=== PATIENT | female | born 1975 | race Caucasian/White ===

== ENCOUNTER 2017-01-11 07:52 | Emergency (ER) | payer OTHER ==
[~2017-01-11] VITALS: Ht 162.5 cm; Wt 68.0 kg
[~2017-01-11 07:52] MED LIST: AMOXICILLIN500 M2 PO; ANAPROX DS550 MG PO; ANTIVERT/2525 M1 PO; ATIVAN1 MG PO; AUGMENTIN 875 M1 TAB PO; AUGMENTIN 875875 MG PO; BACTRIM DS 8001 TA1 PO; CHROMAGEN FORTE1 TAB PO; CIPROFLOXACIN500 MG PO; CLARITIN10 MG PO; CLINDAMYCIN HC300 MG PO; DARVOCET A500 51 TAB PO; DAYPRO600 M1 PO; DIFLUCAN150 MG PO; EC NAPROSYN500 MG PO; EES400 MG PO; FERROUS SULFAT325 M1 PO; FLEXERIL10 MG PO; FLEXERIL5 MG PO; FLOMAX0.4 MG PO; Fioricet 325 MG1 TAB PO; IBU-8800 MG PO; IMITREX; INDERAL LA60 MG PO; IRON TABLETS325 MG PO; KEFLEX500 MG PO; MECLIZINE25 MG PO; MOTRIN800 MG PO; NAPROSYN250 MG PO; NAPROSYN500 MG PO; NORCO 325 MG-51 TAB PO; PENICILLIN VK500 MG PO; PERCOCET 325 MG1 TA2 PO; PERCOCET 325 MG1 TA5 PO; PHENERGAN25 M1 PO; PREVACID SOLUTA30 MG PO; PRISTIQ100 MG PO; PROVERA10 MG PO; Peridex 473 ML473 ML PO; ROBAXIN750 MG PO; SEPTRA DS 800 M1 TAB PO; SKELAXIN800 MG PO; SYMBICORT1 AE1 IH; TOPAMAX50 MG PO; TRAMADOL HCL50 MG PO; ULTRAM50 MG PO; VALIUM10 MG PO; VICODIN 5/500 505 MG PO; VICODIN 500 MG-1 TAB PO; VITAMIN D50000 I3 PO; WELLBUTRIN75 MG PO; ZOFRAN ODT4 MG SL; ZOFRAN4 MG PO; ZYRTEC10 MG PO; [UNRECOGNIZED DRUG - OTHER]; [UNRECOGNIZED DRUG - REMARK]
[2017-01-11 08:06] VITALS: BP 106/60
== END 2017-01-11 10:33 | disposition home or self-care (01) ==
LOC: ED 07:52
DX: R51 Headache (principal); G43.909 Migraine, unspecified, not intractable, without status migrainosus

== ENCOUNTER 2017-01-28 00:34 | Emergency (ER) | payer OTHER ==
[~2017-01-28] VITALS: Ht 162.5 cm; Wt 68.0 kg
[2017-01-28 00:35] VITALS: BP 111/65
[2017-01-28] MEDS ORDERED: AMOXICILLIN500 M2 PO (00:52)
[2017-01-28] MEDS ORDERED: ZYRTEC10 MG PO (00:52)
== END 2017-01-28 01:01 | disposition home or self-care (01) ==
LOC: ED 00:34
DX: J01.90 Acute sinusitis, unspecified (principal); Z87.891 Personal history of nicotine dependence; Z90.49 Acquired absence of other specified parts of digestive tract

== ENCOUNTER 2017-03-06 04:38 | Emergency (ER) | payer OTHER ==
[~2017-03-06] VITALS: Ht 162.5 cm; Wt 72.6 kg
[2017-03-06 04:45] VITALS: BP 118/79
== END 2017-03-06 06:25 | disposition home or self-care (01) ==
LOC: ED 04:38
DX: G43.909 Migraine, unspecified, not intractable, without status migrainosus (principal); Z87.891 Personal history of nicotine dependence; Z90.49 Acquired absence of other specified parts of digestive tract; Z87.442 Personal history of urinary calculi

== ENCOUNTER 2017-03-18 06:51 | Emergency (ER) | payer OTHER ==
[~2017-03-18] VITALS: Ht 162.5 cm; Wt 68.0 kg
[2017-03-18 06:57] VITALS: BP 108/72
== END 2017-03-18 08:51 | disposition home or self-care (01) ==
LOC: ED 06:51
DX: S90.121A Contusion of right lesser toe(s) without damage to nail, initial encounter (principal); S90.414A Abrasion, right lesser toe(s), initial encounter; Z87.891 Personal history of nicotine dependence; Z90.49 Acquired absence of other specified parts of digestive tract; G43.909 Migraine, unspecified, not intractable, without status migrainosus; Z87.442 Personal history of urinary calculi; W22.8XXA Striking against or struck by other objects, initial encounter; Y93.39 Activity, other involving climbing, rappelling and jumping off; Y92.9 Unspecified place or not applicable; Y99.9 Unspecified external cause status

== ENCOUNTER 2017-05-08 13:59 | Emergency (ER) | payer SELFPAY ==
[~2017-05-08] VITALS: Ht 165.1 cm; Wt 72.6 kg
[2017-05-08 14:31] VITALS: BP 126/72
== END 2017-05-08 15:32 | disposition home or self-care (01) ==
LOC: ED 13:59
DX: R51 Headache (principal); R03.0 Elevated blood-pressure reading, without diagnosis of hypertension; R11.0 Nausea; Z87.891 Personal history of nicotine dependence

== ENCOUNTER 2017-06-08 19:02 | Inpatient (IN) | payer OTHER ==
[~2017-06-08] VITALS: Ht 162.5 cm; Wt 76.8 kg
--- NOTE | ~2017-06-08 | PR ---
[place], [place] PROGRESS NOTE NAME: DELBERT VILLANUEVA [facility] #: [id number] UNIT #: [id number] ROOM: 526 DOCTOR: AYAD MENA MD BIRTHDATE: [birth year] DOS: 06/10/2017 CARDIOLOGY PROGRESS NOTE HISTORY OF PRESENT ILLNESS: The patient was seen at her bedside today with family in attendance. She is a 41-year-old woman who has had dyspnea with exertion and persistent chest discomfort for the last month. Symptoms got worse and prompted this admission. Since she has been in the hospital, serial cardiac biomarkers and EKGs have been normal. Her chest x-ray shows no infiltrates. A CT angiogram of the chest showed no evidence for pulmonary embolism or aortic dissection. Her echocardiogram shows normal wall motion and no evidence for pericarditis. Nonetheless, she continues to be dyspneic with modest exertion. PHYSICAL EXAMINATION: VITAL SIGNS: Her pulse is 78 and regular, blood pressure is 101/65. She is afebrile. She weighs 76.8 kilograms with a body mass index of 29.1. HEENT: Normocephalic, atraumatic. Extraocular muscles are intact. Sclerae are clear. Pupils are equal, round and reactive to light. The oral mucosa is moist. Tongue is midline. NECK: Supple. She has no jugular distention. Carotids are full. LUNGS: Respirations are unlabored at rest. She does have expiratory prolongation, but no wheezes or rales. HEART: Her heart has a regular rhythm with a soft S4 gallop, but no S3 or murmur. The PMI is not displaced. ABDOMEN: Soft and normally active without masses, organomegaly or bruits. EXTREMITIES: Showed no edema. Peripheral pulses are palpable in the feet. IMPRESSION: 1. Atypical, precordial chest discomfort. 2. Dyspnea on exertion. 3. Episodes of nausea, vomiting and diarrhea prior to admission, which have resolved. 4. History of migraine headaches. 5. Family history of coronary artery disease in her mother. 6. Remote tobacco abuse, abstinent for 3 years. PLAN: No other cardiac workup is planned as an inpatient. Unless other evaluation or management strategies are being planned by the primary team, she could be discharged to home from our standpoint and have a stress test early this coming week as an outpatient. I thank the hospitalist physicians for asking our advice regarding her assessment. [place], [place] PROGRESS NOTE NAME: DELBERT VILLANUEVA UNIT #: [id number] ROOM: 526 DOCTOR: AYAD MENA MD BIRTHDATE: [birth year] AYAD MENA MD CM:PNTRANS [id number] AYAD MENA MD 06/10/172216 interface
--- NOTE | ~2017-06-08 | CON ---
[place], [place] REPORT OF CONSULTATION [id number] UNIT #: [id number] ROOM: 526 DOCTOR: KATHY REYNOLDS MD BIRTHDATE: [birth year] DOS: 06/09/2017 REASON FOR CONSULTATION: Chest pain. HISTORY OF PRESENT ILLNESS: The patient is a 41-year-old patient with history of migraine headaches, kidney stones, and obesity, who presented to the Emergency Room with chest pain. She complained of midsternal chest pain for the past 1 month and it has been more or less constant pain. It is there most of the day. It sometimes gets better, sometimes get worse. There is no radiation of the pain. This pain is mild in severity and it is started about a month ago. It sometimes may get worse with exertion but usually it is there all the time and intermittently can get worse on its own. She describes this pain as sharp and heaviness in the midsternal area. She denied any associated symptoms with this pain. This pain again has no radiation. She also complained of some shortness of breath for the past one month. Again, her shortness of breath is there pretty much all day, even when she is at rest, sometimes gets worse with exertion, but no cough or hemoptysis. For the past several days, she noted to have some nausea, vomiting, and diarrhea and also yesterday and today she had some "low-grade fever." She denies any palpitations, dizziness. No syncope. No PND or orthopnea. No genitourinary symptoms. No musculoskeletal symptoms. No neurologic symptoms such as tingling, numbness or weakness, but she does have some chronic headaches. No blurred vision or double vision. REVIEW OF SYSTEMS: Review of the 10-system negative except as mentioned above. PAST MEDICAL HISTORY: 1. Migraine headaches. 2. Kidney stones. 3. History of cervical dysplasia. 4. History of hematuria. 5. Overweight. PAST SURGICAL HISTORY: History of cholecystectomy, history of uterine ablation, thyroidectomy. SOCIAL HISTORY: Does not drink alcohol, does not use any illicit drugs. She quit smoking in 2013. FAMILY HISTORY: Mother has coronary artery disease and she at the age of 54. The father has no known medical histories. ALLERGIES: No known drug allergies. HOME MEDICATIONS: Reviewed. PHYSICAL EXAMINATION: VITAL SIGNS: Blood pressure 104/40, pulse 77, respirations 18. BMI 29.1 with weight of 76.7 kilos. GENERAL: Alert, comfortable, in no acute distress. [place], [place] REPORT OF CONSULTATION NAME: DELBERT VILLANUEVA UNIT #: [id number] ROOM: 526 DOCTOR: KATHY REYNOLDS MD BIRTHDATE: [birth year] HEENT: Pupils are round and equal. No jaundice. Tongue was moist and pharynx was clear. NECK: Supple, no distended neck veins, no carotid bruit. CHEST: Symmetrical. There is minimal tenderness in the left and right pericardial area near the infraclavicular area. No palpable thrills. HEART: Regular rhythm, no S3, no S4. LUNGS: Clear to auscultation bilaterally. ABDOMEN: Nontender. Bowel sounds normal. No palpable masses, no pulsatile aorta. EXTREMITIES: Showed no edema. Distal pulses are palpable. SKIN: Warm and dry. No cyanosis, no clubbing. NEUROLOGIC: The patient is alert and oriented. No focal neurologic deficit. RECTAL: Deferred. GENITOURINARY: Deferred. MUSCULOSKELETAL: No joint tenderness or swelling. PSYCHIATRIC: The patient is alert, oriented with good mood and affect. DIAGNOSTIC TESTS AND IMAGING STUDIES: EKGs and labs reviewed. EKG showed normal sinus rhythm with T-wave inversion in V1, V2, nonspecific. IMPRESSION: 1. Chest pain, atypical. 2. Shortness of breath. 3. Nausea, vomiting, and diarrhea. 4. Migraine headaches. 5. Overweight. 6. Family history of coronary artery disease, in the mother. 7. History a remote tobacco use, quit in 2013. RECOMMENDATIONS: Her chest pain appears to be atypical. EKG and cardiac enzymes unremarkable. We need to rule out pulmonary emboli. Due to her chest pain and shortness of breath, she was scheduled for a CT angiogram of the chest this afternoon. Check 2D echo for LV function and also right ventricular function and valvular function. If her chest CT is negative and she continues to have recurrent chest pain, then I would recommend a stress test. This can be done on Monday due to the weekend. The above treatment plan discussed with the patient and all her questions answered. Thank you, Dr. Kaufman, for asking us to evaluate this patient and we will follow the case along with you. [place], [place] REPORT OF CONSULTATION NAME: DELBERT VILLANUEVA UNIT #: [id number] ROOM: 526 DOCTOR: KATHY REYNOLDS MD BIRTHDATE: [birth year] KATHY REYNOLDS MD CM:CONSTR:REPORT OF CONSULTATION 1254 06/10/17 0213 interface
[2017-06-08 19:14] VITALS: BP 110/72
[2017-06-08 19:37] LABS: BASO % 0.3 % (0.0-1.0); EOS # 0.1 10*3/uL (0.0-0.4); EOS % 1.2 % (1.0-4.0); HEMATOCRIT 34.1 % (37.0-47.0); HEMOGLOBIN 11.7 g/dl (12.0-16.0); LYMPH # 2.2 10*3/uL (1.3-4.4); LYMPH % 32.7 % (27.0-41.0); MEAN CELL VOLUME 85.3 fl (81.0-99.0); MEAN CORPUSCULAR HGB 29.3 pg (27.0-31.0); MEAN CORPUSCULAR HGB CONC 34.3 g/dl (33.0-37.0); MEAN PLATELET VOLUME 9.3 fl (9.6-12.3); MONO # 0.4 10*3/uL (0.1-1.0); MONO % 6.4 % (3.0-9.0); NEUT # 4.1 10*3/uL (2.3-7.9); NEUT % 59.1 % (47.0-73.0); PLATELET COUNT AUTOMATED 207 10*3/uL (130-400); RED CELL DISTRI WIDTH 12.7 % (0-14.5); WHITE BLOOD COUNT 6.9 10*3/uL (4.8-10.8)
[2017-06-08 19:47] LABS: INTERNATIONAL NORM RATIO 0.9 (2.0-3.5)
[2017-06-08 19:53] LABS: ALBUMIN 3.7 gm/dl (3.1-4.5); ALKALINE PHOSPHATASE 107 U/L (45-117); BILIRUBIN, TOTAL 0.5 mg/dl (0.2-1.0); BUN 11 mg/dl (7-24); CARBON DIOXIDE 25 mmol/L (21-32); CHLORIDE 108 mmol/L (98-107); EST GLOM FILT AFRICAN AMERICAN > 60 ml/min; GLUCOSE 88 mg/dL (65-99); MAGNESIUM 1.9 mg/dL (1.5-2.1); POTASSIUM 3.4 mmol/L (3.5-5.1); SGOT/AST 16 IU/L (3-35); SGPT/ALT 35 U/L (12-78); SODIUM 140 mmol/L (136-145); TOTAL PROTEIN 7.2 gm/dL (6.4-8.2)
[2017-06-08 19:54] LABS: TROPONIN I < 0.015 ng/ml (<0.045)
[2017-06-08 21:23] VITALS: BP 108/58
[2017-06-08 22:00] VITALS: BP 110/67
[2017-06-09] VITALS: BP 96/52
[2017-06-09 05:54] LABS: BASO % 0.8 % (0.0-1.0); EOS # 0.1 10*3/uL (0.0-0.4); HEMATOCRIT 34.5 % (37.0-47.0); HEMOGLOBIN 11.7 g/dl (12.0-16.0); LYMPH # 1.8 10*3/uL (1.3-4.4); LYMPH % 37.5 % (27.0-41.0); MEAN CELL VOLUME 86.7 fl (81.0-99.0); MEAN CORPUSCULAR HGB 29.4 pg (27.0-31.0); MEAN CORPUSCULAR HGB CONC 33.9 g/dl (33.0-37.0); MEAN PLATELET VOLUME 9.7 fl (9.6-12.3); MONO # 0.4 10*3/uL (0.1-1.0); MONO % 7.4 % (3.0-9.0); NEUT # 2.5 10*3/uL (2.3-7.9); NEUT % 52.1 % (47.0-73.0); PLATELET COUNT AUTOMATED 187 10*3/uL (130-400); RED BLOOD COUNT 3.98 10*6/uL (4.10-5.10); RED CELL DISTRI WIDTH 12.6 % (0-14.5); WHITE BLOOD COUNT 4.9 10*3/uL (4.8-10.8)
[2017-06-09 06:04] LABS: ALBUMIN 3.4 gm/dl (3.1-4.5); ALKALINE PHOSPHATASE 98 U/L (45-117); BILIRUBIN, TOTAL 0.9 mg/dl (0.2-1.0); BUN 12 mg/dl (7-24); CARBON DIOXIDE 22 mmol/L (21-32); CHLORIDE 110 mmol/L (98-107); EST GLOM FILT AFRICAN AMERICAN > 60 ml/min; GLUCOSE 88 mg/dL (65-99); POTASSIUM 3.8 mmol/L (3.5-5.1); SGOT/AST 19 IU/L (3-35); SGPT/ALT 29 U/L (12-78); SODIUM 138 mmol/L (136-145); TOTAL PROTEIN 6.8 gm/dL (6.4-8.2)
[2017-06-09 08:00] VITALS: BP 104/46
[2017-06-09 12:00] VITALS: BP 106/59
[2017-06-09 16:00] VITALS: BP 123/69
[2017-06-09 20:00] VITALS: BP 123/71
[2017-06-10] VITALS: BP 105/53
[2017-06-10 06:18] LABS: BASO % 0.8 % (0.0-1.0); EOS # 0.1 10*3/uL (0.0-0.4); EOS % 1.6 % (1.0-4.0); HEMATOCRIT 37.2 % (37.0-47.0); HEMOGLOBIN 12.4 g/dl (12.0-16.0); LYMPH # 1.9 10*3/uL (1.3-4.4); LYMPH % 37.9 % (27.0-41.0); MEAN CELL VOLUME 87.5 fl (81.0-99.0); MEAN CORPUSCULAR HGB 29.2 pg (27.0-31.0); MEAN CORPUSCULAR HGB CONC 33.3 g/dl (33.0-37.0); MEAN PLATELET VOLUME 9.4 fl (9.6-12.3); MONO # 0.3 10*3/uL (0.1-1.0); MONO % 6.3 % (3.0-9.0); NEUT # 2.7 10*3/uL (2.3-7.9); PLATELET COUNT AUTOMATED 193 10*3/uL (130-400); RED BLOOD COUNT 4.25 10*6/uL (4.10-5.10); RED CELL DISTRI WIDTH 12.7 % (0-14.5); WHITE BLOOD COUNT 5.1 10*3/uL (4.8-10.8)
[2017-06-10 06:42] LABS: BUN 10 mg/dl (7-24); CARBON DIOXIDE 24 mmol/L (21-32); CHLORIDE 110 mmol/L (98-107); EST GLOM FILT AFRICAN AMERICAN > 60 ml/min; GLUCOSE 87 mg/dL (65-99); POTASSIUM 3.9 mmol/L (3.5-5.1); SODIUM 141 mmol/L (136-145)
[2017-06-10 08:00] VITALS: BP 97/55
[2017-06-10 12:00] VITALS: BP 107/60
[2017-06-10 16:00] VITALS: BP 101/65
== END 2017-06-10 18:20 | disposition home or self-care (01) | DRG 392 ==
LOC: ED 19:02 → 5E 20:39 → EDHOLD 20:39 → 5E 20:42
PROVIDERS: Emergency Medicine; Family Medicine; Internal Medicine Nephrology
DX: K21.9 Gastro-esophageal reflux disease without esophagitis (principal); E87.8 Other disorders of electrolyte and fluid balance, not elsewhere classified; R00.1 Bradycardia, unspecified; D64.9 Anemia, unspecified; G43.909 Migraine, unspecified, not intractable, without status migrainosus; R06.00 Dyspnea, unspecified; R11.2 Nausea with vomiting, unspecified; E66.3 Overweight; Z90.49 Acquired absence of other specified parts of digestive tract; Z87.891 Personal history of nicotine dependence; Z82.49 Family history of ischemic heart disease and other diseases of the circulatory system; Q06.1 Hypoplasia and dysplasia of spinal cord; Z68.29 Body mass index [BMI] 29.0-29.9, adult; R07.89 Other chest pain

== ENCOUNTER 2017-07-26 19:17 | Emergency (ER) | payer OTHER ==
[~2017-07-26] VITALS: Ht 162.5 cm; Wt 72.6 kg
[2017-07-26 19:23] VITALS: BP 138/74
[2017-07-26] MEDS ORDERED: CLINDAMYCIN HC300 MG PO (20:20)
== END 2017-07-26 20:50 | disposition home or self-care (01) ==
LOC: ED 19:17
DX: K04.7 Periapical abscess without sinus (principal)

== ENCOUNTER 2017-10-18 12:18 | Emergency (ER) | payer OTHER ==
[~2017-10-18] VITALS: Ht 162.5 cm; Wt 77.1 kg
[2017-10-18 12:34] VITALS: BP 122/82
== END 2017-10-18 14:37 | disposition home or self-care (01) ==
LOC: ED 12:18
DX: G43.909 Migraine, unspecified, not intractable, without status migrainosus (principal)

== ENCOUNTER → 2018-05-29 | Outpatient (CLI) | payer OTHER | END | disposition home or self-care (01) | LOC: RAD 14:53 | DX: M47.816 Spondylosis without myelopathy or radiculopathy, lumbar region (principal) ==

== ENCOUNTER → 2018-09-07 | Outpatient (CLI) | payer OTHER | END | disposition home or self-care (01) | LOC: ORTHO 02:03 | DX: M25.562 Pain in left knee (principal) ==

== ENCOUNTER 2018-11-11 15:28 | Emergency (ER) | payer OTHER ==
[~2018-11-11] VITALS: Ht 162.5 cm; Wt 72.6 kg
[2018-11-11 15:29] VITALS: BP 121/76
[2018-11-11] MEDS ORDERED: NAPROSYN500 MG PO (15:40)
[2018-11-11] MEDS ORDERED: PREDNISONE50 MG PO (15:40)
== END 2018-11-11 15:51 | disposition home or self-care (01) ==
LOC: ED 15:28
DX: S29.012A Strain of muscle and tendon of back wall of thorax, initial encounter (principal); X58.XXXA Exposure to other specified factors, initial encounter; Y93.89 Activity, other specified; Y92.89 Other specified places as the place of occurrence of the external cause; Y99.8 Other external cause status

== ENCOUNTER → 2019-01-30 | Outpatient (CLI) | payer OTHER ==
[~2019-01-30] MED LIST changes: +PREDNISONE50 MG PO
== END | disposition home or self-care (01) ==
LOC: US 01-22 15:00
DX: N92.6 Irregular menstruation, unspecified (principal)

== ENCOUNTER 2019-08-31 19:10 | Emergency (ER) | payer OTHER ==
[~2019-08-31] VITALS: Ht 162.5 cm; Wt 74.8 kg
[2019-08-31 19:12] VITALS: BP 110/50
[2019-08-31 19:54] LABS: BILIRUBIN NEGATIVE (NEGATIVE); BLOOD NEGATIVE (NEGATIVE); CLARITY CLOUDY (CLEAR); COLOR YELLOW (YELLOW); GLUCOSE NEGATIVE (NEGATIVE); KETONE NEGATIVE (NEGATIVE); LEUKO ESTERASE NEGATIVE (NEGATIVE); NITRITE NEGATIVE (NEGATIVE); PH 7.5 (5.0-9.0); SPECIFIC GRAVITY 1.015 (1.005-1.030); UROBILINOGEN 0.2 E.U./dl (0.2-1.0)
[2019-08-31 20:00] LABS: EPITHELIAL CELLS TNTC
[2019-08-31 20:01] LABS: BACTERIA TRACE; WBC 0-2 wbc/hpf (0-5)
[2019-08-31 20:08] LABS: BASO % 0.4 % (0.0-1.0); EOS % 0.6 % (1.0-4.0); HEMATOCRIT 37.1 % (37.0-47.0); HEMOGLOBIN 12.2 g/dl (12.0-16.0); LYMPH # 1.3 10*3/uL (1.3-4.4); LYMPH % 24.1 % (27.0-41.0); MEAN CELL VOLUME 88.8 fl (81.0-99.0); MEAN CORPUSCULAR HGB 29.2 pg (27.0-31.0); MEAN CORPUSCULAR HGB CONC 32.9 g/dl (33.0-37.0); MEAN PLATELET VOLUME 9.7 fl (9.6-12.3); MONO # 0.4 10*3/uL (0.1-1.0); MONO % 7.1 % (3.0-9.0); NEUT # 3.6 10*3/uL (2.3-7.9); NEUT % 67.2 % (47.0-73.0); PLATELET COUNT AUTOMATED 223 10*3/uL (130-400); RED BLOOD COUNT 4.18 10*6/uL (4.10-5.10); RED CELL DISTRI WIDTH 12.7 % (0-14.5); WHITE BLOOD COUNT 5.4 10*3/uL (4.8-10.8)
[2019-08-31 20:25] LABS: ALBUMIN 3.8 gm/dl (3.1-4.5); ALKALINE PHOSPHATASE 110 U/L (45-117); BUN 11 mg/dl (7-24); CHLORIDE 108 mmol/L (98-107); CREATININE 0.82 mg/dL (0.55-1.02); LIPASE 161 U/L (73-393); POTASSIUM 3.4 mmol/L (3.5-5.1); SGOT/AST 17 IU/L (3-35); SGPT/ALT 22 U/L (12-78); SODIUM 139 mmol/L (136-145); TOTAL PROTEIN 7.1 gm/dL (6.4-8.2)
[2019-08-31] MEDS ORDERED: ZOFRAN4 MG PO (21:26)
[2019-08-31] MEDS ORDERED: LOMOTIL 2.5-0.1 EACH PO (21:26)
== END 2019-08-31 21:47 | disposition home or self-care (01) ==
LOC: ED 19:10
PROVIDERS: Emergency Medicine Emergency Medical Services
DX: K52.9 Noninfective gastroenteritis and colitis, unspecified (principal); G43.909 Migraine, unspecified, not intractable, without status migrainosus

== ENCOUNTER 2019-09-22 07:15 | Emergency (ER) | payer OTHER ==
[~2019-09-22] VITALS: Ht 162.5 cm; Wt 79.4 kg
[~2019-09-22 07:15] MED LIST changes: +LOMOTIL 2.5-0.1 EACH PO
[2019-09-22 07:18] VITALS: BP 105/64
[2019-09-22 08:08] LABS: BILIRUBIN NEGATIVE (NEGATIVE); BLOOD NEGATIVE (NEGATIVE); CLARITY SL CLOUDY (CLEAR); COLOR YELLOW (YELLOW); GLUCOSE NEGATIVE (NEGATIVE); KETONE NEGATIVE (NEGATIVE); LEUKO ESTERASE NEGATIVE (NEGATIVE); NITRITE NEGATIVE (NEGATIVE); PH 5.5 (5.0-9.0); SPECIFIC GRAVITY 1.025 (1.005-1.030); UROBILINOGEN 0.2 E.U./dl (0.2-1.0)
[2019-09-22 08:21] LABS: BACTERIA 2+; WBC 0-2 wbc/hpf (0-5)
[2019-09-22] MEDS ORDERED: NAPROSYN500 MG PO ×2 (08:34→08:37)
[2019-09-22] MEDS ORDERED: AMOXICILLIN500 M3 PO ×2 (08:34→08:37)
[2019-09-22] MEDS ORDERED: TYLENOL325 M1 PO ×2 (08:34→08:37)
== END 2019-09-22 08:41 | disposition home or self-care (01) ==
LOC: ED 07:15
PROVIDERS: Emergency Medicine
DX: J01.00 Acute maxillary sinusitis, unspecified (principal); B96.89 Other specified bacterial agents as the cause of diseases classified elsewhere; R10.9 Unspecified abdominal pain; M26.629 Arthralgia of temporomandibular joint, unspecified side; H92.03 Otalgia, bilateral; G43.909 Migraine, unspecified, not intractable, without status migrainosus; F17.200 Nicotine dependence, unspecified, uncomplicated

== ENCOUNTER 2019-10-15 07:12 | Emergency (ER) | payer OTHER ==
[~2019-10-15] VITALS: Ht 165.1 cm; Wt 80.7 kg
[~2019-10-15 07:12] MED LIST changes: +AMOXICILLIN500 M3 PO; +TYLENOL325 M1 PO
[2019-10-15 07:13] VITALS: BP 141/64
[2019-10-15] MEDS ORDERED: Fioricet 325 MG1 TAB PO (08:24)
== END 2019-10-15 08:35 | disposition home or self-care (01) ==
LOC: ED 07:12
DX: G43.909 Migraine, unspecified, not intractable, without status migrainosus (principal); F31.9 Bipolar disorder, unspecified; F17.200 Nicotine dependence, unspecified, uncomplicated; Z79.2 Long term (current) use of antibiotics; Z79.899 Other long term (current) drug therapy; Z90.49 Acquired absence of other specified parts of digestive tract

== ENCOUNTER 2019-11-13 02:21 | Emergency (ER) | payer OTHER ==
[~2019-11-13] VITALS: Wt 77.1 kg
[2019-11-13 02:23] VITALS: BP 104/69
== END 2019-11-13 05:02 | disposition home or self-care (01) ==
LOC: ED 02:21
DX: G43.909 Migraine, unspecified, not intractable, without status migrainosus (principal); R11.10 Vomiting, unspecified; Z79.2 Long term (current) use of antibiotics; Z79.899 Other long term (current) drug therapy; Z90.49 Acquired absence of other specified parts of digestive tract; Z87.891 Personal history of nicotine dependence

== ENCOUNTER 2019-11-23 14:28 | Emergency (ER) | payer OTHER ==
[~2019-11-23] VITALS: Ht 162.5 cm; Wt 77.1 kg
[2019-11-23 15:13] LABS: BASO % 0.8 % (0.0-1.0); EOS % 0.6 % (1.0-4.0); HEMATOCRIT 37.4 % (37.0-47.0); HEMOGLOBIN 12.6 g/dl (12.0-16.0); LYMPH # 1.4 10*3/uL (1.3-4.4); LYMPH % 26.5 % (27.0-41.0); MEAN CELL VOLUME 88.4 fl (81.0-99.0); MEAN CORPUSCULAR HGB 29.8 pg (27.0-31.0); MEAN CORPUSCULAR HGB CONC 33.7 g/dl (33.0-37.0); MEAN PLATELET VOLUME 9.4 fl (9.6-12.3); MONO # 0.3 10*3/uL (0.1-1.0); MONO % 6.4 % (3.0-9.0); NEUT # 3.4 10*3/uL (2.3-7.9); NEUT % 65.1 % (47.0-73.0); PLATELET COUNT AUTOMATED 229 10*3/uL (130-400); RED BLOOD COUNT 4.23 10*6/uL (4.10-5.10); RED CELL DISTRI WIDTH 12.6 % (0-14.5); WHITE BLOOD COUNT 5.3 10*3/uL (4.8-10.8)
[2019-11-23 15:27] LABS: ALBUMIN 3.7 gm/dl (3.1-4.5); ALKALINE PHOSPHATASE 105 U/L (45-117); BUN 9 mg/dl (7-24); CHLORIDE 111 mmol/L (98-107); CREATININE 0.82 mg/dL (0.55-1.02); LIPASE 146 U/L (73-393); POTASSIUM 3.6 mmol/L (3.5-5.1); SGOT/AST 15 IU/L (3-35); SGPT/ALT 29 U/L (12-78); SODIUM 142 mmol/L (136-145)
[2019-11-23 16:01] LABS: BILIRUBIN NEGATIVE (NEGATIVE); BLOOD 1+ (NEGATIVE); CLARITY SL CLOUDY (CLEAR); COLOR YELLOW (YELLOW); GLUCOSE NEGATIVE (NEGATIVE); KETONE NEGATIVE (NEGATIVE); LEUKO ESTERASE NEGATIVE (NEGATIVE); NITRITE NEGATIVE (NEGATIVE); SPECIFIC GRAVITY 1.015 (1.005-1.030); UROBILINOGEN 0.2 E.U./dl (0.2-1.0)
[2019-11-23 16:08] LABS: BACTERIA 2+; MUCOUS TRACE; RBC 0-2 rbc/hpf (0-2)
[2019-11-23] MEDS ORDERED: FLAGYL500 MG PO (17:39)
[2019-11-23] MEDS ORDERED: NORCO 5-325 TA1 EACH PO (17:39)
[2019-11-23] MEDS ORDERED: CIPRO500 MG PO (17:39)
[2019-11-23] MEDS ORDERED: ZOFRAN4 MG PO (17:39)
[2019-11-23 18:11] VITALS: BP 122/75
== END 2019-11-23 18:15 | disposition home or self-care (01) ==
LOC: ED 14:28
PROVIDERS: Physician Assistant
DX: K52.9 Noninfective gastroenteritis and colitis, unspecified (principal); G43.909 Migraine, unspecified, not intractable, without status migrainosus

== ENCOUNTER 2020-01-19 13:27 | Emergency (ER) | payer OTHER ==
[~2020-01-19] VITALS: Ht 162.5 cm; Wt 78.0 kg
[~2020-01-19 13:27] MED LIST changes: +CIPRO500 MG PO; +FLAGYL500 MG PO; +NORCO 5-325 TA1 EACH PO
[2020-01-19 13:31] VITALS: BP 123/48
== END 2020-01-19 14:30 | disposition home or self-care (01) ==
LOC: ED 13:27
DX: G43.909 Migraine, unspecified, not intractable, without status migrainosus (principal); F31.9 Bipolar disorder, unspecified; Z79.899 Other long term (current) drug therapy; Z79.2 Long term (current) use of antibiotics; Z90.49 Acquired absence of other specified parts of digestive tract

== ENCOUNTER 2020-05-15 14:20 | Emergency (ER) | payer OTHER ==
[2020-05-15 14:35] VITALS: BP 95/52
[2020-05-15 16:02] LABS: BASO % 0.7 % (0.0-1.0); EOS # 0.1 10*3/uL (0.0-0.4); EOS % 1.3 % (1.0-4.0); LYMPH # 1.6 10*3/uL (1.3-4.4); LYMPH % 28.9 % (27.0-41.0); MEAN CELL VOLUME 86.7 fl (81.0-99.0); MEAN CORPUSCULAR HGB 28.8 pg (27.0-31.0); MEAN CORPUSCULAR HGB CONC 33.2 g/dl (33.0-37.0); MEAN PLATELET VOLUME 9.4 fl (9.6-12.3); MONO # 0.3 10*3/uL (0.1-1.0); MONO % 6.1 % (3.0-9.0); NEUT # 3.4 10*3/uL (2.3-7.9); NEUT % 62.6 % (47.0-73.0); PLATELET COUNT AUTOMATED 223 10*3/uL (130-400); RED BLOOD COUNT 4.27 10*6/uL (4.10-5.10); RED CELL DISTRI WIDTH 12.5 % (0-14.5); WHITE BLOOD COUNT 5.4 10*3/uL (4.8-10.8)
[2020-05-15 16:18] LABS: ALBUMIN 3.6 gm/dl (3.1-4.5); ALKALINE PHOSPHATASE 102 U/L (45-117); BUN 8 mg/dl (7-24); CHLORIDE 110 mmol/L (98-107); CREATININE 0.73 mg/dL (0.55-1.02); LDH 118 U/L (84-246); POTASSIUM 3.7 mmol/L (3.5-5.1); SGOT/AST 14 IU/L (3-35); SGPT/ALT 22 U/L (12-78); SODIUM 138 mmol/L (136-145); TOTAL PROTEIN 7.1 gm/dL (6.4-8.2)
== END 2020-05-15 17:09 | disposition home or self-care (01) ==
LOC: ED 14:20
PROVIDERS: Internal Medicine
DX: B34.9 Viral infection, unspecified (principal); Z79.899 Other long term (current) drug therapy; Z79.2 Long term (current) use of antibiotics; Z90.49 Acquired absence of other specified parts of digestive tract; Z20.828 Contact with and (suspected) exposure to other viral communicable diseases

== ENCOUNTER 2020-06-27 14:25 | Emergency (ER) | payer OTHER ==
[~2020-06-27] VITALS: Ht 162.5 cm; Wt 77.1 kg
[2020-06-27 14:40] VITALS: BP 133/72
[2020-06-27] MEDS ORDERED: TESSALON PERLE100 M1 PO (17:00)
[2020-06-27] MEDS ORDERED: PROVENTIL HFA6.7 GM INH (17:00)
== END 2020-06-27 17:03 | disposition home or self-care (01) ==
LOC: ED 14:25
DX: J40 Bronchitis, not specified as acute or chronic (principal); Z87.891 Personal history of nicotine dependence

== ENCOUNTER 2020-10-31 19:33 | Emergency (ER) | payer OTHER ==
[~2020-10-31] VITALS: Ht 162.5 cm; Wt 77.1 kg
[~2020-10-31 19:33] MED LIST changes: +PROVENTIL HFA6.7 GM INH; +TESSALON PERLE100 M1 PO
[2020-10-31 20:41] LABS: BASO % 0.8 % (0.0-1.0); EOS # 0.1 10*3/uL (0.0-0.4); EOS % 1.2 % (1.0-4.0); HEMATOCRIT 36.9 % (37.0-47.0); LYMPH # 1.4 10*3/uL (1.3-4.4); LYMPH % 28.3 % (27.0-41.0); MEAN CELL VOLUME 85.2 fl (81.0-99.0); MEAN CORPUSCULAR HGB 28.4 pg (27.0-31.0); MEAN CORPUSCULAR HGB CONC 33.3 g/dl (33.0-37.0); MEAN PLATELET VOLUME 9.4 fl (9.6-12.3); MONO # 0.4 10*3/uL (0.1-1.0); MONO % 7.9 % (3.0-9.0); NEUT # 3.1 10*3/uL (2.3-7.9); NEUT % 61.6 % (47.0-73.0); PLATELET COUNT AUTOMATED 233 10*3/uL (130-400); RED BLOOD COUNT 4.33 10*6/uL (4.10-5.10); RED CELL DISTRI WIDTH 12.5 % (0-14.5); WHITE BLOOD COUNT 5.1 10*3/uL (4.8-10.8)
[2020-10-31 20:57] LABS: ALBUMIN 3.7 gm/dl (3.1-4.5); ALKALINE PHOSPHATASE 125 U/L (45-117); BUN 13 mg/dl (7-24); CHLORIDE 108 mmol/L (98-107); CREATININE 0.84 mg/dL (0.55-1.02); POTASSIUM 3.5 mmol/L (3.5-5.1); SGOT/AST 14 IU/L (3-35); SGPT/ALT 34 U/L (12-78); SODIUM 140 mmol/L (136-145); TOTAL PROTEIN 7.2 gm/dL (6.4-8.2)
[2020-10-31 20:58] LABS: TROPONIN I < 0.015 ng/ml (<0.045)
[2020-10-31 21:11] VITALS: BP 95/58
== END 2020-10-31 22:22 | disposition home or self-care (01) ==
LOC: ED 19:33
PROVIDERS: Nurse Practitioner Family
DX: F41.9 Anxiety disorder, unspecified (principal); R07.89 Other chest pain; R06.02 Shortness of breath

== ENCOUNTER 2021-03-10 14:51 | Emergency (ER) | payer OTHER ==
[2021-03-10 14:54] VITALS: BP 111/58
[2021-03-10 16:57] LABS: BASO % 0.6 % (0.0-1.0); EOS # 0.1 10*3/uL (0.0-0.4); LYMPH # 1.6 10*3/uL (1.3-4.4); LYMPH % 30.5 % (27.0-41.0); MEAN CELL VOLUME 85.5 fl (81.0-99.0); MEAN CORPUSCULAR HGB CONC 33.9 g/dl (33.0-37.0); MEAN PLATELET VOLUME 9.4 fl (9.6-12.3); MONO # 0.4 10*3/uL (0.1-1.0); NEUT # 3.1 10*3/uL (2.3-7.9); NEUT % 60.7 % (47.0-73.0); PLATELET COUNT AUTOMATED 204 10*3/uL (130-400); RED BLOOD COUNT 4.21 10*6/uL (4.10-5.10); RED CELL DISTRI WIDTH 12.7 % (0-14.5); WHITE BLOOD COUNT 5.1 10*3/uL (4.8-10.8)
[2021-03-10 17:08] LABS: ACT PARTIAL THROMBO TIME 25.6 SECONDS (20.0-32.1)
[2021-03-10 17:25] LABS: ALBUMIN 3.4 gm/dl (3.1-4.5); ALKALINE PHOSPHATASE 94 U/L (45-117); BUN 6 mg/dl (7-24); CHLORIDE 112 mmol/L (98-107); CREATININE 0.66 mg/dL (0.55-1.02); LIPASE 111 U/L (73-393); POTASSIUM 3.5 mmol/L (3.5-5.1); SGOT/AST 18 IU/L (3-35); SGPT/ALT 35 U/L (12-78); SODIUM 139 mmol/L (136-145); TOTAL PROTEIN 6.3 gm/dL (6.4-8.2)
[2021-03-10 17:32] LABS: BETA-HCG, QUANT < 1.0 mIU/mL (1-3)
[2021-03-10] MEDS ORDERED: PREDNISONE50 MG PO (18:28)
[2021-03-10] MEDS ORDERED: CYCLOBENZAPRINE10 MG PO (18:28)
[2021-03-10] MEDS ORDERED: HYDROCODONE-AC1 EAC1 PO (18:28)
== END 2021-03-10 18:45 | disposition home or self-care (01) ==
LOC: ED 14:51
PROVIDERS: Emergency Medicine
DX: S29.012A Strain of muscle and tendon of back wall of thorax, initial encounter (principal); Z79.899 Other long term (current) drug therapy; Z90.49 Acquired absence of other specified parts of digestive tract; Z98.890 Other specified postprocedural states; X58.XXXA Exposure to other specified factors, initial encounter; Y93.89 Activity, other specified; Y92.89 Other specified places as the place of occurrence of the external cause; Y99.8 Other external cause status

== ENCOUNTER 2021-04-13 15:35 | Emergency (ER) | payer OTHER ==
[~2021-04-13] VITALS: Ht 162.5 cm; Wt 72.6 kg
[~2021-04-13 15:35] MED LIST changes: +CYCLOBENZAPRINE10 MG PO; +HYDROCODONE-AC1 EAC1 PO
[2021-04-13 15:38] VITALS: BP 126/68
[2021-04-13] MEDS ORDERED: NAPROXEN250 MG PO (17:34)
[2021-04-13] MEDS ORDERED: SEPTDS PO (17:34)
[2021-04-13] MEDS ORDERED: TYLENOL325 M1 PO (17:34)
== END 2021-04-13 17:58 | disposition home or self-care (01) ==
LOC: ED 15:35
DX: L02.01 Cutaneous abscess of face (principal); G43.909 Migraine, unspecified, not intractable, without status migrainosus; Z79.899 Other long term (current) drug therapy; Z90.49 Acquired absence of other specified parts of digestive tract; Z98.890 Other specified postprocedural states

== ENCOUNTER 2021-09-30 22:51 | Emergency (ER) | payer OTHER ==
[~2021-09-30] VITALS: Ht 162.5 cm; Wt 70.8 kg
[~2021-09-30 22:51] MED LIST changes: +NAPROXEN250 MG PO; +SEPTDS PO
[2021-09-30 23:04] VITALS: BP 116/68
[2021-10-01] MEDS ORDERED: CYCLOBENZAPRINE10 MG PO (03:14)
== END 2021-10-01 04:30 | disposition home or self-care (01) ==
LOC: ED 22:51
DX: S39.012A Strain of muscle, fascia and tendon of lower back, initial encounter (principal); S16.1XXA Strain of muscle, fascia and tendon at neck level, initial encounter; S20.211A Contusion of right front wall of thorax, initial encounter; G43.909 Migraine, unspecified, not intractable, without status migrainosus; V20.4XXA Motorcycle driver injured in collision with pedestrian or animal in traffic accident, initial encounter; Y93.89 Activity, other specified; Y92.89 Other specified places as the place of occurrence of the external cause; Y99.8 Other external cause status

== ENCOUNTER 2022-02-04 13:44 | Emergency (ER) | payer OTHER ==
[~2022-02-04] VITALS: Ht 162.5 cm; Wt 72.6 kg
[~2022-02-04 13:44] MED LIST changes: +ASACOL HD800 M1 PO; +DELZICOL400 M2 PO; +METRONIDAZOLE500 M1 PO; +VITAMIN D350 MC2 PO
[2022-02-04 13:57] VITALS: BP 122/46
[2022-02-04 14:30] LABS: BILIRUBIN Negative (Negative); BLOOD Negative (Negative); CLARITY Clear (Clear); COLOR Yellow (Yellow); GLUCOSE Negative (Negative); KETONE Negative (Negative); LEUKO ESTERASE Negative (Negative); NITRITE Negative (Negative); SPECIFIC GRAVITY <= 1.005 (1.001-1.030); UROBILINOGEN 0.2 E.U./dl (0.0-1.0)
[2022-02-04 14:33] LABS: BASO % 0.7 % (0.0-1.0); HEMATOCRIT 38.5 % (37.0-47.0); LYMPH # 0.8 10*3/uL (1.3-4.4); LYMPH % 19.1 % (27.0-41.0); MEAN CORPUSCULAR HGB 29.1 pg (27.0-31.0); MEAN CORPUSCULAR HGB CONC 34.3 g/dl (33.0-37.0); MEAN PLATELET VOLUME 8.9 fl (9.6-12.3); MONO # 0.4 10*3/uL (0.1-1.0); MONO % 8.8 % (3.0-9.0); NEUT # 2.9 10*3/uL (2.3-7.9); NEUT % 69.9 % (47.0-73.0); PLATELET COUNT AUTOMATED 191 10*3/uL (130-400); RED BLOOD COUNT 4.53 10*6/uL (4.10-5.10); RED CELL DISTRI WIDTH 12.5 % (0-14.5); WHITE BLOOD COUNT 4.2 10*3/uL (4.8-10.8)
[2022-02-04 14:39] LABS: BACTERIA TRACE; RBC 0-2 rbc/hpf (0-2); WBC 0-2 wbc/hpf (0-5)
[2022-02-04 14:46] LABS: ALKALINE PHOSPHATASE 104 U/L (45-117); BUN 7 mg/dl (7-24); CHLORIDE 110 mmol/L (98-107); CREATININE 0.83 mg/dL (0.55-1.02); LIPASE 94 U/L (73-393); POTASSIUM 3.1 mmol/L (3.5-5.1); SGOT/AST 10 IU/L (3-35); SGPT/ALT 20 U/L (12-78); SODIUM 139 mmol/L (136-145); TOTAL PROTEIN 7.3 gm/dL (6.4-8.2)
[2022-02-04] MEDS ORDERED: K-TAB20 MEQ PO (17:16)
[2022-02-04] MEDS ORDERED: ZOFRAN4 MG PO (17:16)
== END 2022-02-04 17:21 | disposition home or self-care (01) ==
LOC: ED 13:44
PROVIDERS: Physician Assistant
DX: E87.6 Hypokalemia (principal); B34.9 Viral infection, unspecified; R11.2 Nausea with vomiting, unspecified; Z87.891 Personal history of nicotine dependence; Z90.49 Acquired absence of other specified parts of digestive tract; Z79.899 Other long term (current) drug therapy

== ENCOUNTER 2022-04-01 17:53 | Emergency (ER) | payer OTHER ==
[~2022-04-01] VITALS: Ht 162.5 cm; Wt 68.0 kg
[~2022-04-01 17:53] MED LIST changes: +K-TAB20 MEQ PO
[2022-04-01 18:07] VITALS: BP 115/58
[2022-04-01 18:39] LABS: BASO % 0.6 % (0.0-1.0); EOS % 0.3 % (1.0-4.0); HEMATOCRIT 38.7 % (37.0-47.0); LYMPH # 1.5 10*3/uL (1.3-4.4); LYMPH % 23.6 % (27.0-41.0); MEAN CELL VOLUME 86.8 fl (81.0-99.0); MEAN CORPUSCULAR HGB 29.8 pg (27.0-31.0); MEAN CORPUSCULAR HGB CONC 34.4 g/dl (33.0-37.0); MEAN PLATELET VOLUME 8.8 fl (9.6-12.3); MONO # 0.4 10*3/uL (0.1-1.0); NEUT # 4.5 10*3/uL (2.3-7.9); NEUT % 69.2 % (47.0-73.0); PLATELET COUNT AUTOMATED 222 10*3/uL (130-400); RED BLOOD COUNT 4.46 10*6/uL (4.10-5.10); RED CELL DISTRI WIDTH 12.3 % (0-14.5); WHITE BLOOD COUNT 6.5 10*3/uL (4.8-10.8)
[2022-04-01 18:52] LABS: BUN 8 mg/dl (7-24); CHLORIDE 109 mmol/L (98-107); CREATININE 0.77 mg/dL (0.55-1.02); POTASSIUM 3.5 mmol/L (3.5-5.1); SODIUM 140 mmol/L (136-145)
== END 2022-04-01 19:10 | disposition home or self-care (01) ==
LOC: ED 17:53
PROVIDERS: Internal Medicine
DX: K64.8 Other hemorrhoids (principal)

== ENCOUNTER 2023-04-02 11:11 | Emergency (ER) | payer OTHER ==
[~2023-04-02] VITALS: Ht 162.5 cm; Wt 70.3 kg
[2023-04-02 11:15] VITALS: BP 152/70
[2023-04-02 11:49] LABS: BASO % 0.7 % (0.0-1.0); EOS % 0.7 % (1.0-4.0); HEMATOCRIT 39.6 % (37.0-47.0); LYMPH # 1.2 10*3/uL (1.3-4.4); LYMPH % 21.4 % (27.0-41.0); MEAN CELL VOLUME 87.6 fl (81.0-99.0); MEAN CORPUSCULAR HGB 30.1 pg (27.0-31.0); MEAN CORPUSCULAR HGB CONC 34.3 g/dl (33.0-37.0); MONO # 0.4 10*3/uL (0.1-1.0); MONO % 6.8 % (3.0-9.0); NEUT # 3.8 10*3/uL (2.3-7.9); PLATELET COUNT AUTOMATED 251 10*3/uL (130-400); RED BLOOD COUNT 4.52 10*6/uL (4.10-5.10); RED CELL DISTRI WIDTH 12.8 % (0-14.5); WHITE BLOOD COUNT 5.4 10*3/uL (4.8-10.8)
[2023-04-02 11:59] LABS: ACT PARTIAL THROMBO TIME 27.2 SECONDS (20.0-32.1)
[2023-04-02 12:15] LABS: ALKALINE PHOSPHATASE 99 U/L (46-116); CHLORIDE 108 mmol/L (98-107); POTASSIUM 2.8 mmol/L (3.4-5.1); SGPT/ALT 14 U/L (10-49); TOTAL PROTEIN 7.1 gm/dL (6.0-8.0)
[2023-04-02 12:21] LABS: BUN < 5 mg/dl (9-23)
[2023-04-02] MEDS ORDERED: POTASSIUM CHLO20 ME3 PO (13:50)
[2023-04-02] MEDS ORDERED: GOOD NEIGHBOR M25 M1 PO (13:54)
== END 2023-04-02 15:17 | disposition home or self-care (01) ==
LOC: ED 11:11
PROVIDERS: Nurse Practitioner Family
DX: R42 Dizziness and giddiness (principal); R07.89 Other chest pain; E87.6 Hypokalemia; R11.0 Nausea; G43.909 Migraine, unspecified, not intractable, without status migrainosus; F31.9 Bipolar disorder, unspecified; Z90.49 Acquired absence of other specified parts of digestive tract; Z98.51 Tubal ligation status; Z98.890 Other specified postprocedural states

== ENCOUNTER → 2023-04-05 | Outpatient (CLI) | payer OTHER ==
[~2023-04-05] MED LIST changes: +GOOD NEIGHBOR M25 M1 PO; +POTASSIUM CHLO20 ME3 PO
[2023-04-05 10:55] LABS: BASO % 0.6 % (0.0-1.0); BILIRUBIN Negative (Negative); BLOOD 1+ (Negative); CLARITY Clear (Clear); COLOR Yellow (Yellow); EOS # 0.1 10*3/uL (0.0-0.4); EOS % 0.9 % (1.0-4.0); GLUCOSE Negative (Negative); HEMATOCRIT 41.2 % (37.0-47.0); KETONE Negative (Negative); LEUKO ESTERASE Negative (Negative); LYMPH # 1.4 10*3/uL (1.3-4.4); LYMPH % 20.9 % (27.0-41.0); MEAN CELL VOLUME 88.6 fl (81.0-99.0); MEAN CORPUSCULAR HGB 30.1 pg (27.0-31.0); MONO # 0.4 10*3/uL (0.1-1.0); MONO % 5.6 % (3.0-9.0); NEUT # 4.9 10*3/uL (2.3-7.9); NEUT % 71.7 % (47.0-73.0); NITRITE Negative (Negative); PLATELET COUNT AUTOMATED 253 10*3/uL (130-400); RED BLOOD COUNT 4.65 10*6/uL (4.10-5.10); RED CELL DISTRI WIDTH 12.9 % (0-14.5); RETICULOCYTE % 1.52 % (0.50-2.50); UROBILINOGEN 0.2 E.U./dl (0.0-1.0); WHITE BLOOD COUNT 6.8 10*3/uL (4.8-10.8)
[2023-04-05 11:28] LABS: ALKALINE PHOSPHATASE 96 U/L (46-116); BUN 8 mg/dl (9-23); CHLORIDE 108 mmol/L (98-107); CHOLESTEROL 173 mg/dL (<200); GAMMA GLUTAMYL TRANSPEPTIDASE 43 U/L (0-73); LDL CHOLESTEROL 114 mg/dL (9-159); POTASSIUM 3.4 mmol/L (3.4-5.1); SGPT/ALT 12 U/L (10-49); T3 UPTAKE 26.5 % (22.4-36.7); THYROID STIM HORMONE (HS) 0.553 uIU/ml (0.550-4.780); THYROXINE (T4) TOTAL 10.3 ug/dl (4.5-10.9); TOTAL PROTEIN 7.1 gm/dL (6.0-8.0); TRIGLYCERIDES 107 mg/dl (<150); URIC ACID 4.2 mg/dL (3.1-7.8); VITAMIN D, 25-HYDROXY 30.2 ng/mL (30-100)
[2023-04-05 11:53] LABS: BACTERIA 1+; EPITHELIAL CELLS 51-100; RBC 0-2 rbc/hpf (0-2); WBC 0-2 wbc/hpf (0-5)
[2023-04-06 13:06] LABS: ANTI-DSDNA ANTIBODIES 3 IU/mL (0-9)
== END ==
LOC: LAB 10:32
PROVIDERS: ATTEND Family Medicine
DX: E78.5 Hyperlipidemia, unspecified (principal); R79.89 Other specified abnormal findings of blood chemistry; R53.83 Other fatigue; E55.9 Vitamin D deficiency, unspecified; R74.8 Abnormal levels of other serum enzymes

== ENCOUNTER → 2023-04-13 | Outpatient (CLI) | payer OTHER | END | disposition home or self-care (01) | LOC: MRI 13:00 | PROVIDERS: ATTEND Family Medicine | DX: I67.89 Other cerebrovascular disease (principal); G43.909 Migraine, unspecified, not intractable, without status migrainosus; M27.40 Unspecified cyst of jaw ==

== ENCOUNTER 2024-01-23 17:00 | Emergency (ER) | payer SELFPAY ==
[~2024-01-23] VITALS: Ht 162.5 cm; Wt 67.1 kg
[2024-01-23 17:26] VITALS: BP 103/46
[2024-01-23] MEDS ORDERED: ACETAMINOPHEN 325 MG TAB PO ONE (17:35)
[2024-01-23] MEDS ORDERED: SODIUM CHLORIDE 0.9% 1,000 ML IV ONE (17:35)
[2024-01-23 19:08] LABS: BILIRUBIN Negative (Negative); BLOOD Negative (Negative); CLARITY Clear (Clear); COLOR Yellow (Yellow); GLUCOSE Negative (Negative); KETONE Negative (Negative); LEUKO ESTERASE Negative (Negative); NITRITE Negative (Negative); PH 6.5 (4.5-8.0); SPECIFIC GRAVITY <= 1.005 (1.001-1.030); UROBILINOGEN 0.2 E.U./dl (0.0-1.0)
[2024-01-23 19:12] LABS: BACTERIA TRACE
[2024-01-23] MEDS ORDERED: ONDANSETRON4 MG SL (19:12)
== END 2024-01-23 19:15 | disposition home or self-care (01) ==
LOC: ED 17:00
PROVIDERS: Physician Assistant Medical
DX: A08.4 Viral intestinal infection, unspecified (principal); Z20.822 Contact with and (suspected) exposure to COVID-19; R11.2 Nausea with vomiting, unspecified; R63.0 Anorexia; G43.909 Migraine, unspecified, not intractable, without status migrainosus; F31.9 Bipolar disorder, unspecified; Z68.1 Body mass index [BMI] 19.9 or less, adult; Z90.49 Acquired absence of other specified parts of digestive tract; Z98.51 Tubal ligation status; Z98.890 Other specified postprocedural states

== ENCOUNTER 2024-12-11 15:05 | Emergency (ER) | payer OTHER ==
[~2024-12-11] VITALS: Ht 162.5 cm; Wt 72.6 kg
[~2024-12-11 15:05] MED LIST changes: +ONDANSETRON4 MG SL
[2024-12-11 15:15] VITALS: BP 109/49
[2024-12-11] MEDS ORDERED: ACETAMINOPHEN 325 MG TAB PO ONE (15:25)
[2024-12-11] MEDS ORDERED: CYCLOBENZAPRINE5 M3 PO (17:37)
== END 2024-12-11 18:08 | disposition home or self-care (01) ==
LOC: ED 15:05
DX: S16.1XXA Strain of muscle, fascia and tendon at neck level, initial encounter (principal); S39.012A Strain of muscle, fascia and tendon of lower back, initial encounter; G43.909 Migraine, unspecified, not intractable, without status migrainosus; M25.512 Pain in left shoulder; F32.A Depression, unspecified; Z90.49 Acquired absence of other specified parts of digestive tract; Z98.51 Tubal ligation status; Z98.890 Other specified postprocedural states; V43.52XA Car driver injured in collision with other type car in traffic accident, initial encounter; Y93.89 Activity, other specified; Y92.410 Unspecified street and highway as the place of occurrence of the external cause; Y99.8 Other external cause status

== ENCOUNTER 2024-12-20 23:09 | Emergency (ER) | payer SELFPAY ==
[~2024-12-20] VITALS: Ht 162.5 cm; Wt 70.3 kg
[~2024-12-20 23:09] MED LIST changes: +CYCLOBENZAPRINE5 M3 PO
[2024-12-20 23:18] VITALS: BP 122/61
[2024-12-20 23:58] LABS: BASO % 0.6 % (0.0-1.0); EOS # 0.1 10*3/uL (0.0-0.4); EOS % 1.1 % (1.0-4.0); HEMATOCRIT 34.7 % (37.0-47.0); MEAN CELL VOLUME 87.8 fl (81.0-99.0); MEAN CORPUSCULAR HGB 29.6 pg (27.0-31.0); MEAN CORPUSCULAR HGB CONC 33.7 g/dl (33.0-37.0); MEAN PLATELET VOLUME 8.8 fl (9.6-12.3); MONO # 0.4 10*3/uL (0.1-1.0); MONO % 6.8 % (3.0-9.0); NEUT # 4.1 10*3/uL (2.3-7.9); NEUT % 64.3 % (47.0-73.0); PLATELET COUNT AUTOMATED 213 10*3/uL (130-400); RED BLOOD COUNT 3.95 10*6/uL (4.10-5.10); RED CELL DISTRI WIDTH 12.2 % (0-14.5); WHITE BLOOD COUNT 6.4 10*3/uL (4.8-10.8)
[2024-12-21 00:17] LABS: BUN 9 mg/dl (9-23); CHLORIDE 108 mmol/L (98-107); POTASSIUM 3.1 mmol/L (3.4-5.1)
[2024-12-21] MEDS ORDERED: Acetaminophen/Oxycodone 5 MG/325 MG TABLET PO ONE ×2 (02:40→02:55)
[2024-12-21] MEDS ORDERED: POTASSIUM CHLORIDE 20 MEQ TAB PO ONE (02:40)
[2024-12-21] MEDS ORDERED: MELOXICAM15 MG PO (02:41)
== END 2024-12-21 03:04 | disposition home or self-care (01) ==
LOC: ED 23:09
PROVIDERS: Internal Medicine
DX: M94.0 Chondrocostal junction syndrome [Tietze] (principal); G43.909 Migraine, unspecified, not intractable, without status migrainosus; F20.9 Schizophrenia, unspecified; F31.9 Bipolar disorder, unspecified; Z79.899 Other long term (current) drug therapy; Z90.49 Acquired absence of other specified parts of digestive tract; Z90.710 Acquired absence of both cervix and uterus; Z98.51 Tubal ligation status